=== PATIENT | female | born 1965 | race Caucasian/White ===

== ENCOUNTER 2023-02-01 19:09 | Emergency (ER) | payer MEDICAID ==
[~2023-02-01] VITALS: Ht 154.9 cm; Wt 69.0 kg
[2023-02-01 19:34] VITALS: BP 192/95
[2023-02-01] MEDS ORDERED: ACETAMINOPHEN 325MG TABLET PO ONE (22:45)
[2023-02-01] MEDS ORDERED: TOPUD MT (23:35)
== END 2023-02-02 00:05 | disposition home or self-care (01) ==
LOC: ER 19:09
DX: M79.641 Pain in right hand (principal); I10 Essential (primary) hypertension; Z98.890 Other specified postprocedural states
CPT/HCPCS: 29125; 93005; 99283